=== PATIENT | male | born 1945 | race Caucasian/White ===

== ENCOUNTER → 2017-04-28 | Outpatient (CLI) | payer OTHER | LOC: RAD 10:50 | DX: R06.02 Shortness of breath (principal) ==

== ENCOUNTER → 2019-02-09 | Outpatient (CLI) | payer OTHER | LOC: CAT 09:20 | DX: Z13.6 Encounter for screening for cardiovascular disorders (principal); I25.10 Atherosclerotic heart disease of native coronary artery without angina pectoris; E78.00 Pure hypercholesterolemia, unspecified ==

== ENCOUNTER → 2019-03-11 | Outpatient (CLI) | payer OTHER ==
--- NOTE | 2019-03-11 15:43 | 2DMMODE ---
[facility] [place] [address] 2 D/M-MODE ECHOCARDIOGRAM Name: DOUG LEDEZMA Room #: [facility]#: [id number] Admission: 03/11/19 Attend Phys: Beto Bolden Discharge: Date of : 49 Date of Service: 03/11/19 1543 Report #: [id number] THIS REPORT FOR: //name// APPROVED REPORT Study performed: 03/11/2019 14:20:39 EXAM: Comprehensive 2D, Doppler, and color-flow Echocardiogram Patient Location: Echo lab Status: routine BSA: 2.01 HR: 64 bpm BP: 110/68 mmHg Rhythm: NSR Other Information Study Quality: Adequate Indications Family hx afib and CAD 2D Dimensions RVDd: 33.35 mm IVSd: 12.29 (7-11mm) LVOT Diam: 20.67 (18-24mm) LVDd: 42.26 mm PWd: 11.31 (7-11mm) Ascending Ao: 35.60 (22-36mm) LVDs: 27.53 (25-40mm) Aortic Root: 32.09 mm IVC: 28.00 mm Volumes Left Atrial Volume (Systole) Single Plane 4CH: 27.82 mL Single Plane 2CH: 26.28 mL LA ESV Index: 16.00 mL/m2 Aortic Valve AoV Peak Joaquin.: 1.58 m/s AO Peak Gr.: 9.93 mmHg LVOT Max P.92 mmHg LVOT Max V: 1.41 m/s GAGE Vmax: 2.99 cm2 Mitral Valve E/A Ratio: 0.9 MV Decel. Time: 273.10 ms MV E Max Joaquin.: 0.72 m/s [facility] [employer] [address] [address] 2 D/M-MODE ECHOCARDIOGRAM Name: DOUG LEDEZMA Room #: [facility]#: [id number] Admission: 03/11/19 Attend Phys: Beto Bolden Discharge: Date of : 49 Date of Service: 03/11/19 1543 Report #: [id number] MV A Joaquin.: 0.82 m/s MV PHT: 79.20 ms IVRT: 93.43 ms Pulmonary Valve PV Peak Joaquin.: 0.98 m/s PV Peak Gr.: 3.85 mmHg Pulmonary Vein P Vein S: 0.57 m/s P Vein A: 0.33 m/s P Vein D: 0.34 m/s P Vein A Dur.: 175.3 msec P Vein S/D Ratio: 1.68 Tricuspid Valve TR Peak Joaquin.: 2.21 m/s RAP Estimate: 10.00 mmHg TR Peak Gr.: 19.47 mmHg PA Pressure: 30.00 mmHg Left Ventricle The left ventricle is normal size. There is normal left ventricular wall thickness. The left ventricular systolic function is normal. The left ventricular ejection fraction is within the normal range. LVEF is 60-65%. Mild diastolic dysfunction is present (impaired relaxation pattern). Right Ventricle The right ventricle is normal size. The right ventricular systolic function is normal. Atria The left atrium size is normal. The right atrium size is normal. Aortic Valve The aortic valve is normal in structure. No aortic regurgitation is present. There is no aortic valvular stenosis. Mitral Valve The mitral valve is normal in structure. There is no mitral valve regurgitation noted. No evidence of mitral valve stenosis. Tricuspid Valve The tricuspid valve is normal in structure. Trace tricuspid regurgitation. PAP is estimated at 30 mmHg. Pulmonic Valve The pulmonary valve is normal in structure. Mild pulmonic [address] [address] 2 D/M-MODE ECHOCARDIOGRAM Name: BRISADOUG Room #: [facility]#: [id number] Admission: 03/11/19 Attend Phys: Beto Chatmanchonnjennifer Discharge: Date of : 49 Date of Service: 03/11/19 1543 Report #: [id number] regurgitation. Great Vessels The aortic root is normal in size. IVC is dilated and collapses >50% with inspiration. Pericardium There is no pericardial effusion. <Conclusion> The left ventricle is normal size. There is normal left ventricular wall thickness. The left ventricular systolic function is normal. Mild diastolic dysfunction is present (impaired relaxation pattern). The right ventricle is normal size. The left atrium size is normal. The aortic valve is normal in structure. The mitral valve is normal in structure. Trace tricuspid regurgitation. PAP is estimated at 30 mmHg. <ELECTRONICALLY SIGNED> By: Kolton Loyns MD 03/11/19 1543 1543 1543 Kolton Lyons MD /INF
== END ==
LOC: CV 14:06
DX: I48.91 Unspecified atrial fibrillation (principal); G47.33 Obstructive sleep apnea (adult) (pediatric); I25.10 Atherosclerotic heart disease of native coronary artery without angina pectoris

== ENCOUNTER → 2019-04-01 | Outpatient (CLI) | payer OTHER | LOC: CV 03-31 14:44 | DX: G47.33 Obstructive sleep apnea (adult) (pediatric) (principal) ==

== ENCOUNTER → 2020-07-31 | Outpatient (CLI) | payer OTHER | LOC: SJCVC 11:15 | PROVIDERS: ATTEND Internal Medicine | DX: R00.1 Bradycardia, unspecified (principal); I44.0 Atrioventricular block, first degree; R93.1 Abnormal findings on diagnostic imaging of heart and coronary circulation; E78.5 Hyperlipidemia, unspecified; G47.33 Obstructive sleep apnea (adult) (pediatric); Z79.899 Other long term (current) drug therapy; Z72.89 Other problems related to lifestyle ==